=== PATIENT | female | born 1985 | race Caucasian/White ===

== ENCOUNTER 2019-07-08 07:30 | Inpatient (IN) | payer OTHER ==
[2019-07-08] MEDS ORDERED: DEXTROSE 5%-LACTATED RINGERS 1,000 ML IV SCH (08:20)
[2019-07-08] MEDS ORDERED: AMPICILLIN SODIUM 2 GM VIAL ONE (08:31)
--- NOTE | 2019-07-08 08:41 | HP ---
Past Medical History - Primary Care Physician PCP:: Travis Sofia - Admission Chief Complaint: Pt. is 37 wks 6 days. Admitted w hx of gush of fluid at 04;30 hours. Uneventful . Late registrant from [place]. GBS status unknown. No allergy. History Source: Patient Limitations to Obtaining History: No Limitations - Past Medical History MANAGER VISUAL: No: Alzheimer's, CVA, Dementia, Migraine, Multiple Sclerosis, Peripheral Neuropathy, Parkinson's, Seizure, Syncope, TIA, Vertigo, Other Cardiovascular: No: AFIB, Aneurysm, Aortic Insufficiency, Aortic Stenosis, CAD, CHF, Deep Vein Thrombosis, HTN, Hyperlipdemia, GA, Mitral Insufficiency, Mitral Stenosis, Murmur, Pulmonary Hypertension, Other Pulmonary: No: Asthma, Bronchitis, Cancer, COPD, O2 Dependent, Pneumonia, Previously Intubated, Pulmonary Embolus, Pulmonary Fibrosis, Sleep Apnea, Other Gastrointestinal: No: Ascites, Cancer, Constipation, Crohn's Disease, Diverticulitis, Diverticulosis, Esophageal Varices, Gastritis, GERD, GI Bleed, Hemorrhoids, Hiatal Hernia, Inflamatory Bowel Disease, Irritable Bowel Disease, Pancreatitis, Peptic Ulcer Disease, Ulcerative Colitis, Other Hepatobiliary: No: Cirrhosis, Cholelithiasis, Cholecystitis, Choledocholithiasis , Hepatitis A, Hepatitis B, Hepatitis C, Other Renal/: No: Renal Failure, Renal Inusuff, BPH, Cancer, Hematuria, Hemodialysis , Neurogenic Bladder, Renal Calculi, UTI, Other Reproductive: No: Ectopic , Endometriosis, Fibroids, PID, Polycystic Ovary Syndrome, Postmenopausal, Other ...Para: 0 ...Term: 37 ...EDC by Kory: 07/23/19 Heme/Onc: No: Anemia, B12 Deficiency, Bleeding Disorder, Cancer, Current Chemotherapy, Current Radiation Therapy, Hemochromatosis, Hypercoaguable State, Myeloproliferative Synd, Sickle Cell Disease, Sickle Cell Trait, Thrombocytopenia, Other Infectious Disease: No: AIDS, C-Diff, Herpes Zoster, HIV, MRSA, STD's, Tuberculosis, VREF, Other Psych: No: Addictions, Anxiety, Bipolar, Depression, Panic, Psychosis, Schizophrenia, Other Musculoskeletal: No: Bursitis, Chronic low back pain, Hemiparesis, Hemiplegia, Osteoarthritis, Paraplegia, Other Rheumatology: No: Fibromyalgia, Gout, Lupus, Rheumatoid Arthritis, Sarcoidosis, Vasculitis, Other ENT: No: Allergic Rhinitis, Sinusitis, Other Endocrine: No: [place]'s Disease, [place]'s Disease, Diabetes Insipidus, Diabetes Mellitus, Hyperparathyroidism, Hyperthyroidism, Hypothyroidism, Osteopenia, SIADH, Other Dermatology: No: Basal Cell, Cellulitis, Eczema, Melanoma, Psoriasis, Squamous Cell, Other - Past Surgical History Past Surgical History: No: None, AAA Repair, AICD, Amputation, Appendectomy, Arthrosocopy, AV Fistula/Graft, Bariatric Surgery, Breast Biopsy, Bypass, CABG, Carotid Endarterectomy, Cataract Removal, Cholecystectomy, Colectomy, Colonoscopy, Colostomy, Craniotomy, , Cystectomy, Hernia Repair, Hysterectomy, Ileal Conduit, Ileosotomy, Joint Replacement, Kidney Transplant, Laminectomy, Liver Transplant, Mastectomy, Nephrectomy, Oopherectomy, Orchiectomy, Permanent Pacemaker, Prostatectomy, Splenectomy, Stent, Thoracotomy , TURP, Tonsillectomy, Tubal Ligation, Upper Endoscopy, Valve Replacement, Vasectomy, Vein Stripping/Ligation Hx Myomectomy: No Hx Transabdominal Cerclage: No - Smoking History Smoking history: Never smoked - Alcohol/Substance Use Hx Alcohol Use: No - Social History Usual Living Arrangement: Yes: With Spouse Home Medications - Allergies Allergies/Adverse Reactions: Allergies Allergy/AdvReac Type Severity Reaction Status Date / Time No Known Allergies Allergy Verified 07/08/19 08:46 - Home Medications Home Medications: Ambulatory Orders Acyclovir [Zovirax -] 400 mg PO BID 07/08/19 Vit No.129/Iron/Folic [ One Daily Tablet] 1 tab PO DAILY Review of Systems - Review of Systems Constitutional: denies: No Symptoms, Chills, Diaphoresis, Fever, Lethargy, Loss of Appetite, Malaise, Night Sweats, Unintentional Wgt. Loss, Weakness, Other Eyes: denies: No Symptoms, Blind Spots, Blurred Vision, Double Vision, Eye Pain , Floaters, Photophobia, Recent Change in Vision, Other HENT: denies: No Symptoms, Difficult Swallowing, Ear Discharge, Ear Pain, Epistaxis, Gingival Bleeding, Hearing Loss, Mouth Swelling, Nasal Congestion, Ocular Prosthesis, Throat Pain, Toothache, Ringing in Ears, Other Neck: denies: No Symptoms, Decreased ROM, Lumps, Pain on Movement, Stiffness, Swollen Glands, Tenderness, Other Cardiovascular: denies: No Symptoms, Chest Pain, Edema, Palpitations, Shortness of Breath, Other Gastrointestinal: denies: No Symptoms, Abdominal Pain, Bloating, Constipation, Diarrhea, Dysphagia, Indigestion, Melena, Nausea, Rectal Bleeding, Vomiting, Vomiting Blood, Other Genitourinary: denies: No Symptoms, Burning, Discharge, Dysuria, Flank Pain, Frequency, Hematuria, Incontinence, Lesions, Menses, Pain, Testicular Mass, Testicular Pain, Testicular Swelling, Urgency, Vaginal Bleeding, Other Breasts: denies: No Symptoms Reported, See HPI, Breast Implants, Discharge from Nipple, Lumps, Pain, Skin Changes, Other Musculoskeletal: denies: No Symptoms, Back Pain, Crepitus, Decreased ROM, Extremity Pain, Joint Pain, Joint Swelling, Muscle Pain, Muscle Cramps, Muscle Weakness, Other Integumentary: denies: No Symptoms, Blister, Bruising, Change in Color, Eczema, Erythema, Incision, Lesions, Lump, Pallor, Pruritis, Rash, Wound, Other Neurological: denies: No Symptoms, Change in LOC, Change in Speech, Confusion, Dizziness, Headache, Incoordination, Numbness, Parasthesia, Pre-Existing Deficit , Seizure, Syncope, Tremors, Unsteady Gait, Weakness, Other Endocrine: denies: No Symptoms, Excessive Sweating, Flushing, Increased Hunger, Increased Thirst, Intolerance to Cold, Intolerance to Heat, Unexplained Weight Gain, Unexplained Weight Loss, Other Hematology/Lymphatic: denies: No Symptoms, Easily Bruised, Excessive Bleeding, Swollen Glands, Other Psychiatric: denies: No Symptoms, Altered Sleep Pattern, Anxiety, Depression, Hallucinations, Panic, Paranoia, Suicidal, Other Physical Exam - Maternity Constitutional: Yes: Well Nourished Eyes: Yes: WNL HENT: Yes: WNL Neck: Yes: WNL Cardiovascular: Yes: WNL Breast(s): Yes: WNL - Abdominal Exam/OB Fundal Height: 40 Number of Fetuses: Single Presentation: Vertex Contractions: No Monitor Mode: External Heart Rate Location: [facility] Category: I Accelerations: Uniform Decelerations: None - Vaginal Exam/OB Vaginal Bleediing: No Speculum Exam: Yes (AF clear) Dilatation (cm): 0 Effacement (%): 20 Amniotic Membrane Status: Ruptured Nitrazine Test: Positive Amniotic Fluid: Yes: Clear Station: -2 - Physical Exam Musculoskeletal: Yes: WNL Extremities: Yes: WNL Integumentary: Yes: WNL ...Motor Strength: WNL Psychiatric: Yes: WNL Problem List - Problems (1) Rupture of membranes with clear amniotic fluid Code(s): [id number] - Assessment/Plan PROM, no labor. T term. On Acyclovir. GBS unknown All explained. Ampi protocol. Observe; considering induction. All fully discussed. They understand and consent.
[2019-07-08] MEDS ORDERED: AMPICILLIN - 2 GM in SODIUM CHLORIDE 100 ML IVPB ONE (08:52)
[2019-07-08] MEDS ORDERED: ACYCLOVIR 400 MG TABLET PO SCH ×3 (09:00→10:00)
[2019-07-08 09:13] VITALS: BMI 28.1
[2019-07-08] MEDS ORDERED: valACYclovir HCL 500 MG TABLET (FP) PO ONE (09:30)
[2019-07-08 10:36] LABS: BASO % 0.8 % (0-2.0); EOS % 1.5 % (0-4.5); HEMATOCRIT 36.7 % (32.4-45.2); HEMOGLOBIN 12.6 GM/dL (10.7-15.3); LYMPH % 26.1 % (8-40); MCH 33.5 pg (25.7-33.7); MCHC 34.3 g/dl (32.0-36.0); MEAN CELL VOLUME 97.7 fl (80-96); MONO % 4.7 % (3.8-10.2); NEUT % 66.9 % (42.8-82.8); PLATELET COUNT 271 K/MM3 (134-434); RBC 3.75 M/mm3 (3.60-5.2); RDW 14.1 % (11.6-15.6); WHITE BLOOD COUNT 5.3 K/mm3 (4.0-10.0)
[2019-07-08 10:48] LABS: BLOOD UREA NITROGEN 13.2 mg/dL (7-18); CALCIUM 8.8 mg/dL (8.5-10.1); CREATININE 0.8 mg/dL (0.55-1.3); POTASSIUM 3.9 mmol/L (3.5-5.1)
[2019-07-08 10:58] LABS: INR 0.94 (0.83-1.09); PROTHROMBIN TIME (PATIENT) 11.1 SEC (9.7-13.0)
[2019-07-08 11:00] LABS: ACTIVATED PTT 27.6 SECONDS (25.2-36.5)
[2019-07-08 11:02] LABS: RPR NONREACTIVE (NONREACTIVE)
[2019-07-08] MEDS: AMPICILLIN - 1 GM in SODIUM CHLORIDE 100 ML IVPB SCH ×3 (13:00→20:30)
[2019-07-08] MEDS ORDERED: AMPICILLIN SODIUM 1 GM VIAL ONE ×3 (14:25→20:22)
[2019-07-08 15:37] LABS: COCAINE, UR NEGATIVE ng/ml (CUTOFF=300); METHADONE, UR NEGATIVE ng/ml (CUTOFF=300); OPIATES, URI NEGATIVE ng/ml (CUTOFF=300); PHENCYCLIDINE,URINE NEGATIVE ng/ml (CUTOFF=25); URINE AMPHETAMINES NEGATIVE ng/ml (CUTOFF=500); URINE BARBITURATES NEGATIVE ng/ml (CUTOFF=200); URINE BENZODIAZEPINES NEGATIVE ng/ml (CUTOFF=200)
[2019-07-08] MEDS ORDERED: ELECTROLYTE-148 SOLN 1,000 ML IV SCH ×2 (20:00→21:00)
--- NOTE | 2019-07-08 20:02 | PN ---
Progress Note, Labor Vaginal Exam #2 Labor Exam Date: 07/08/19 Labor Exam Time: 19:50 Heart Rate (range): 130 Dilatation: 1-2 Amniotic Membrane Status: Ruptured Presentation: Vertex/Position Station: -2 (Jose Carlos. Uncomfortable. Requesting epidural. Will augment labor, epidural.)
[2019-07-08] MEDS ORDERED: FENTANYL/BUPIVACAINE/NS/PF - PCEA - 50 ML DISP.SYRIN EP ONE (20:51)
[2019-07-08] MEDS ORDERED: LIDO 2%/EPI 1:200000 PRESRVFRE (20 ML SDVIAL) ONE (20:53)
[2019-07-08] MEDS ORDERED: NALOXONE HCL 0.4 MG/ML VIAL IVPUSH PRN (21:40)
[2019-07-08] MEDS ORDERED: FENTANYL/BUPIVACAINE/NS/PF - PCEA - 50 ML DISP.SYRIN EP SCH ×2 (21:45→21:54)
[2019-07-08] MEDS ORDERED: OXYTOCIN 30 UNITS in 0.9% NS 30 UNIT/500 ML INFUS.BAG IVPB ONE (21:59)
[2019-07-08] MEDS ORDERED: OXYTOCIN 30 UNITS in 0.9% NS 30 UNIT/500 ML INFUS.BAG IVPB SCH (22:15)
--- NOTE | 2019-07-08 23:00 | PN ---
Progress Note, Labor Vaginal Exam #3 Labor Exam Date: 07/08/19 Labor Exam Time: 22:50 Heart Rate (range): 140 Dilatation: 3 Effacement (%): 50 Amniotic Membrane Status: Ruptured Presentation: Vertex/Position (FH cat 2. No decels. Some accelerations. Epidural in place, effective.) Station: -2
[2019-07-09] MEDS ORDERED: AMPICILLIN SODIUM 1 GM VIAL ONE ×2 (00:26→04:34)
[2019-07-09] MEDS: AMPICILLIN - 1 GM in SODIUM CHLORIDE 100 ML IVPB SCH ×3 (00:30→09:12)
[2019-07-09] MEDS ORDERED: FENTANYL/BUPIVACAINE/NS/PF - PCEA - 50 ML DISP.SYRIN EP ONE (00:56)
--- NOTE | 2019-07-09 01:53 | PN ---
Progress Note, Labor Vaginal Exam #4 Labor Exam Date: 07/09/19 Labor Exam Time: 01:35 Heart Rate (range): 140 Dilatation: 5 Effacement (%): 80 Amniotic Membrane Status: Ruptured Presentation: Vertex/Position Station: -2 (FH better, cat. 08/30. Sone accels. Slow progress. Vertex high. Increased, quite significant vaginal bleeding. Observe. If it continues pt. will be delivered by c/section.)
--- NOTE | 2019-07-09 03:52 | PN ---
Progress Note, Labor Vaginal Exam #5 Labor Exam Date: 07/09/19 Labor Exam Time: 03:40 Heart Rate (range): 140 Dilatation: 8 Effacement (%): 100 Amniotic Membrane Status: Ruptured Presentation: Vertex/Position Station: 0 (Good progress. FH stable, cat. 1. Still mild bleeding. Vomiting. Observe the progress.)
[2019-07-09] MEDS ORDERED: OXYTOCIN 20 UNITS in 0.9% NS 20 UNIT/1,000 ML INFUS.BAG IV ONE (05:11)
[2019-07-09] MEDS ORDERED: LIDOCAINE HCL 1% PRESERVATIVE FREE - 30ML VIAL ONE (05:11)
--- NOTE | 2019-07-09 05:27 | PN ---
Progress Note, Labor Vaginal Exam #6 Labor Exam Date: 07/09/19 Labor Exam Time: 05:10 Dilatation: 10 Amniotic Membrane Status: Ruptured Station: +2 (OA FH ok; some variables. Pushing)
[2019-07-09] MEDS ORDERED: OXYTOCIN 10 UNITS/ML VIAL IM ONE (06:00)
[2019-07-09] MEDS ORDERED: OXYTOCIN 10 UNITS/ML VIAL ONE (06:15)
--- NOTE | 2019-07-09 06:35 | PN ---
Delivery - Delivery Vaginal Delivery: No Problems Episiotomy/Laceration: Midline EBL (cc): 500 (Patient had increased bleeding in labor.) Delivery, Single - Stages of Labor Date of Delivery: 07/09/19 Time of Delivery: 06:08 Time Placenta Delivered: 06:10 Placenta: Yes: Spontaneous (Small area of abruptio. Placenta sent for pathology. Delivered intact.) - Condition of Group Activities Aide/Grocery Sacker Present: No Infant Gender: Female Position: Left, OA (Apgars 9 and 9.) - 1 Minute Total Score: 9 5 Minutes Total Score: 9 - [place] Feeding Plan Initial Plan: Exclusive throughout hospitalization Benefits of Exclusively reinforced: Yes Remarks - Remarks Remarks: after PROM, induction. Epidural. Girl, Apg. 9 & 9. Small area of abruptio.
[2019-07-09] MEDS ORDERED: SIMETHICONE 80 MG TAB.CHEW (FP) PO PRN (09:26)
[2019-07-09] MEDS ORDERED: METHYLERGONOVINE MALEATE 0.2 MG/1 ML AMP IM PRN (09:26)
[2019-07-09] MEDS: valACYclovir HCL 500 MG TABLET (FP) PO SCH (09:33)
[2019-07-09] MEDS: IBUPROFEN 600 MG TABLET (FP) PO PRN (21:23)
[2019-07-09] MEDS: ACETAMINOPHEN 325 MG TABLET (FP) PO PRN (21:24)
[2019-07-10 08:08] LABS: BASO % 0.3 % (0-2.0); EOS % 0.7 % (0-4.5); HEMATOCRIT 31.1 % (32.4-45.2); HEMOGLOBIN 10.4 GM/dL (10.7-15.3); MCH 33.1 pg (25.7-33.7); MCHC 33.6 g/dl (32.0-36.0); MEAN CELL VOLUME 98.7 fl (80-96); MEAN PLT VOLUME 7.6 fl (7.5-11.1); MONO % 4.4 % (3.8-10.2); NEUT % 80.6 % (42.8-82.8); PLATELET COUNT 254 K/MM3 (134-434); RBC 3.15 M/mm3 (3.60-5.2); RDW 14.5 % (11.6-15.6); WHITE BLOOD COUNT 14.2 K/mm3 (4.0-10.0)
[2019-07-10] MEDS ORDERED: BISACODYL 10 MG SUPP.RECT RC PRN (09:26)
[2019-07-10] MEDS: valACYclovir HCL 500 MG TABLET (FP) PO SCH (09:33)
[2019-07-10 11:30] LABS: POC NITRAZINE POS
--- NOTE | 2019-07-10 20:30 | PN ---
Post Progress Note Post Day: 1 Type of Delivery: Vital Signs: Vital Signs Temperature 98 F 07/10/19 07:20 Pulse Rate 85 07/10/19 07:20 Respiratory Rate 18 07/10/19 07:20 Blood Pressure 102/67 07/10/19 07:20 O2 Sat by Pulse Oximetry (%) 99 07/09/19 07:10 Breast Exam: Yes: Soft Uterus: Yes: Fundus Firm, Fundus below umbilicus, Non-tender Abdomen/GI: Yes: Abdomen soft, Passing flatus, Tolerating PO Lochia: Yes: Serosa Lochia, amount: Small Extremities: Yes: Calves non-tender Activity: Ambulating - Labs Labs: CBC WBC 14.2 K/mm3 (4.0-10.0) H 07/10/19 07:35 RBC 3.15 M/mm3 (3.60-5.2) L 07/10/19 07:35 Hgb 10.4 GM/dL (10.7-15.3) L 07/10/19 07:35 Hct 31.1 % (32.4-45.2) L D 07/10/19 07:35 MCV 98.7 fl (80-96) H 07/10/19 07:35 MCH 33.1 pg (25.7-33.7) 07/10/19 07:35 MCHC 33.6 g/dl (32.0-36.0) 07/10/19 07:35 RDW 14.5 % (11.6-15.6) 07/10/19 07:35 Plt Count 254 K/MM3 (134-434) 07/10/19 07:35 MPV 7.6 fl (7.5-11.1) 07/10/19 07:35 Absolute Neuts (auto) 11.4 K/mm3 (1.5-8.0) H 07/10/19 07:35 Neutrophils % 80.6 % (42.8-82.8) D 07/10/19 07:35 Lymphocytes % 14.0 % (8-40) D 07/10/19 07:35 Monocytes % 4.4 % (3.8-10.2) 07/10/19 07:35 Eosinophils % 0.7 % (0-4.5) 07/10/19 07:35 Basophils % 0.3 % (0-2.0) 07/10/19 07:35 Nucleated RBC % 0 % (0-0) 07/10/19 07:35 Other Findings, Remarks: doing well, dc pt home tomorrow Assessment/Plan dc pt home tomorrow,
--- NOTE | 2019-07-10 20:34 | DS ---
Physical Exam-REVENUE DIRECTOR Vital Signs: Vital Signs Temperature 98 F 07/10/19 07:20 Pulse Rate 85 07/10/19 07:20 Respiratory Rate 18 07/10/19 07:20 Blood Pressure 102/67 07/10/19 07:20 O2 Sat by Pulse Oximetry (%) 99 07/09/19 07:10 Constitutional: Yes: Well Nourished, No Distress, Calm Eyes: Yes: WNL, Conjunctiva Clear, EOM Intact HENT: Yes: WNL, Atraumatic, Normocephalic Neck: Yes: WNL, Supple, Trachea Midline Cardiovascular: Yes: WNL, Regular Rate and Rhythm Respiratory: Yes: WNL, Regular, CTA Bilaterally Gastrointestinal: Yes: WNL, Normal Bowel Sounds, Soft ...Rectal Exam: Yes: WNL Renal/: Yes: WNL Pelvis: Yes: WNL External Genitalia: Yes: Normal Internal Exam Deferred: Yes Vaginal Exam: Yes: Normal Cervix: Yes: Normal Uterus: Yes: Normal Adnexa: Normal: Bilateral ....Post : Yes: Uterus firm, Uterus non-tender Breast(s): Yes: WNL Musculoskeletal: Yes: WNL Extremities: Yes: WNL Edema: Yes Edema: LUE: 1+, RUE: 1+, LLE: 1+, RLE: 1+ Integumentary: Yes: WNL Wound/Incision: Yes: Clean/Dry, Well Approximated Neurological: Yes: WNL, Alert, Oriented ...Motor Strength: WNL Psychiatric: Yes: WNL, Alert, Oriented Labs: CBC, BMP 07/10/19 07:35 07/08/19 09:15 Delivery - Delivery Vaginal Delivery: No Problems Type of Anesthesia: Epidural Episiotomy/Laceration: Midline EBL (cc): 500 (Patient had increased bleeding in labor.) Delivery, Single - Stages of Labor Date 1st Stage Initiatied: 07/08/19 Time 1st Stage Initiated: 04:30 Date 2nd Stage Initiated: 07/08/19 Time 2nd Stage Initiated: 21:00 Date of Delivery: 07/09/19 Time of Delivery: 06:08 Time Placenta Delivered: 06:10 Placenta: Yes: Spontaneous (Small area of abruptio. Placenta sent for pathology. Delivered intact.) - Condition of Furniture Delivery Driver/Administrative Staff Supervisor Present: No Gender: Female Position: Left, OA (Apgars 9 and 9.) Total Hours ROM (Hrs/Mins): 13 hours 38 minutes - 1 Minute Total Score: 9 5 Minutes Total Score: 9 - [place] Feeding Plan Initial Plan: Exclusive throughout hospitalization Benefits of Exclusively reinforced: Yes Discharge Summary Problems reviewed: Yes Reason For Visit: LABOR ADMIT Current Active Problems Rupture of membranes with clear amniotic fluid (Acute) Procedures: Principal: Hospital Course: uneventaful Health Concerns: none Plan of Treatment: oob as much as possible Condition: Good - Instructions Diet, Activity, Other Instructions: regular, routine post care Disposition: HOME - Home Medications Comprehensive Discharge Medication List: Ambulatory Orders Vit No.129/Iron/Folic [ One Daily Tablet] 1 tab PO DAILY Valacyclovir HCl [Valtrex] 500 mg PO DAILY 07/08/19 Prescription Drug Monitoring Program (I-STOP) results: I-STOP reviewed and no issues identified
[2019-07-11] MEDS: IBUPROFEN 600 MG TABLET (FP) PO PRN (08:40)
[2019-07-11] MEDS: ACETAMINOPHEN 325 MG TABLET (FP) PO PRN (08:43)
[2019-07-11] MEDS: valACYclovir HCL 500 MG TABLET (FP) PO SCH (09:53)
[2019-07-11 12:47] VITALS: BP 108/71; PULSE 82; TEMP 98
--- NOTE | 2019-07-17 15:08 | PATH ---
Surgical Pathology Report Patient Name: HEMA ALVARADO [facility] Rec. 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 Electronically Signed Daisy Richard M.D. Gross Description The specimen is received fresh labeled placenta and is a 379 gram, 16.5 x 15.0 x 2.3 cm. placenta with attached membranes and umbilical cord. The attached membranes are saravia, translucent with focal opacities and insert marginally. The umbilical cord measures 29 cm. in length and averages 1 cm. in diameter. The cord inserts eccentrically, 6 cm. to the nearest margin. No true knots or strictures are identified. Cut surface of the umbilical cord reveals 3 vessels. The surface is phillips-blue with minimal fibrin deposition and appropriate caliber vessels. The maternal surface is red-brown with focal defects. Sectioning reveals red-brown, spongy parenchyma. No lesions are identified. Upholstery Trimmer sections are submitted in three cassettes as follows: 1- membrane rolls and umbilical cord; 2-3- full thickness sections of placenta. /07/13/2019 [facility]07/13/2019
== END 2019-07-11 12:40 | disposition home or self-care (01) | DRG 560 ==
LOC: JDEL 07:30 → JLDR 08:20 → J3W 07-09 08:19
PROVIDERS: ADMIT Obstetrics & Gynecology; ATTEND Obstetrics & Gynecology
PROC: 0W8NXZZ Division of Female Perineum, External Approach (ICD-10-PCS; principal; 2019-07-09)
PROC: 10E0XZZ Delivery of Products of Conception, External Approach (ICD-10-PCS; 2019-07-09)
DX: O45.93 Premature separation of placenta, unspecified, third trimester (principal); Z3A.37 37 weeks gestation of pregnancy; Z37.0 Single live birth
CPT/HCPCS: 36415; 59409; 80048; 80307; 83986-QW; 85025; 85610; 85730; 86593; 86850; 86900; 86901; 87389; 88307-TC